=== PATIENT | male | born 1950 | race Caucasian/White ===

== ENCOUNTER 2021-03-11 08:24 | Inpatient (IN) ==
[2021-03-11] MEDS ORDERED: Ondansetron 4 MG/2 ML VIAL IVP PRN ×2 (10:04→15:59)
[2021-03-11] MEDS ORDERED: Acetaminophen 325 MG TABLET PO PRN ×2 (10:04→15:59)
[2021-03-11] MEDS ORDERED: *HR* HYDROmorphone (PF) 1 MG/ML SYRINGE IVP PRN (10:07)
[2021-03-11] MEDS ORDERED: *HR* OxyCODONE Immed Rel 5 MG TABLET PO PRN (10:07)
[2021-03-11] MEDS ORDERED: 0.9 % Sodium Chloride 1,000 ML IVC SCH ×2 (10:15→15:59)
[2021-03-11] MEDS ORDERED: *HR* Dextrose 50 % in Water (Syg) 50 ML SYRINGE IVP PRN ×2 (10:18→15:59)
[2021-03-11] MEDS ORDERED: D5% in Water 1,000 ML IVC PRN ×2 (10:18→15:59)
[2021-03-11] MEDS ORDERED: Dextrose Gel 15 GM/37.5 ML TUBE PO PRN ×4 (10:18→15:59)
[2021-03-11] MEDS ORDERED: MethylPREDNISolone 40 MG/ML VIAL IVP SCH (10:55)
[2021-03-11] MEDS ORDERED: Furosemide 40 MG/4 ML VIAL IVP SCH ×2 (11:00→21:00)
[2021-03-11] MEDS ORDERED: *HR* Heparin 5,000 UNIT/ML VIAL IVP PRN ×2 (11:24)
[2021-03-11] MEDS: Ipratropium/Albuterol Neb 3 ML IH SCH ×5 (11:27→23:54)
[2021-03-11] MEDS ORDERED: Heparin 25,000UNIT/250ML 1/2NS 25,000 UNIT/250 ML IV.SOLN IVC SCH ×2 (11:30→11:31)
[2021-03-11] MEDS ORDERED: Insulin LISPRO 300 UNITS/3 ML VIAL SUBQ SCH ×2 (12:00→18:00)
[2021-03-11] MEDS ORDERED: [UNRECOGNIZED DRUG - OTHER] IVPB ONE ×2 (12:04→15:59)
[2021-03-11] MEDS ORDERED: WATER FOR INJ IVPB ONE ×2 (12:04→15:59)
[2021-03-11] MEDS ORDERED: HUM PROTHROMBIN CPLX IVPB ONE ×2 (12:04→15:59)
[2021-03-11 12:15] LABS: Hematocrit 32.5 % (37.5-50.1); Hemoglobin 9.5 g/dL (12.9-16.9); Mean Corpuscular HGB Conc 29.2 g/dL (31.6-35.5); Mean Corpuscular Hemoglobin 25.9 pg (28.0-33.3); Mean Corpuscular Volume 88.6 fL (83.0-100.0); Mean Platelet Volume 11.4 fL (9.4-12.4); Platelet Count 211 K/mcL (140-400); Red Blood Count 3.67 M/mcL (4.19-5.50); Red Cell Distribution Width 18.3 % (11.5-14.5); White Blood Count 13.3 K/mcL (4.3-11.1)
[2021-03-11 12:22] LABS: INR 1.7; Prothrombin Time 18.4 Seconds (9.4-12.1)
[2021-03-11 12:25] LABS: Heparin anti-factor XA UFH 1.93 IU/mL (0.30-0.70)
[2021-03-11] MEDS ORDERED: *HR* FentaNYL (PF) 100 MCG/2 ML VIAL ONE (12:27)
[2021-03-11] MEDS ORDERED: *HR* Rocuronium Bromide 50 MG/5 ML VIAL ONE (12:27)
[2021-03-11] MEDS ORDERED: *HR* Propofol 200 MG/20 ML VIAL IVP ONE (12:27)
[2021-03-11] MEDS ORDERED: Lidocaine -MPF 2% 5 ML VIAL ONE (12:27)
[2021-03-11] MEDS ORDERED: Heparin 1,000 UNITS/500 mL 500 ML ONE (12:36)
[2021-03-11] MEDS ORDERED: cefOXitin 2,000 MG in Water for inj. (sterile) 20 ML IVP ONE (12:37)
[2021-03-11] MEDS ORDERED: *HR* Vasopressin 20 UNIT/ML VIAL ONE (12:38)
[2021-03-11] MEDS ORDERED: Albumin Human 5% 0 GM/0 ML IV.SOLN ONE (12:48)
[2021-03-11] MEDS ORDERED: CefOXitin 2,000 MG VIAL ONE (12:54)
[2021-03-11] MEDS ORDERED: EPHEDrine 50 MG/ML VIAL ONE (13:32)
[2021-03-11] MEDS ORDERED: *HR* Midazolam HCl 2 MG/2 ML VIAL ONE (13:42)
[2021-03-11] MEDS ORDERED: Acetaminophen IV 1,000 MG/100 ML BAG IVPB ONE (14:00)
[2021-03-11] MEDS ORDERED: Sugammadex Sodium 200 MG/2 ML VIAL IV ONE (14:31)
[2021-03-11] MEDS: MethylPREDNISolone 40 MG/ML VIAL IVP SCH (17:45)
[2021-03-11] MEDS: Insulin LISPRO 300 UNITS/3 ML VIAL SUBQ SCH (17:45)
[2021-03-12 03:20] LABS: Hematocrit 29.9 % (37.5-50.1); Hemoglobin 8.7 g/dL (12.9-16.9); Mean Corpuscular HGB Conc 29.1 g/dL (31.6-35.5); Mean Corpuscular Hemoglobin 25.4 pg (28.0-33.3); Mean Corpuscular Volume 87.4 fL (83.0-100.0); Mean Platelet Volume 11.3 fL (9.4-12.4); Platelet Count 182 K/mcL (140-400); Red Blood Count 3.42 M/mcL (4.19-5.50); Red Cell Distribution Width 18.5 % (11.5-14.5); White Blood Count 10.3 K/mcL (4.3-11.1)
[2021-03-12 03:41] LABS: BUN/Creatinine Ratio 27 (6-26); Blood Urea Nitrogen 34 mg/dL (8-23); Calcium 8.5 mg/dL (8.6-10.3); Carbon Dioxide 28 mEq/L (23-29); Chloride 101 mEq/L (98-107); Glucose 422 mg/dL (70-105); Osmolality,Calculated 314 (280-300); Potassium 4.2 mEq/L (3.5-5.1); Sodium 139 mEq/L (136-145); eGFR For African Americans > 60 (> 60); eGFR For Non-African Americans 58 (> 60)
[2021-03-12] MEDS: Ipratropium/Albuterol Neb 3 ML IH SCH ×6 (03:56→20:43)
[2021-03-12] MEDS: MethylPREDNISolone 40 MG/ML VIAL IVP SCH ×2 (05:45→17:50)
[2021-03-12] MEDS: *HR* HYDROmorphone (PF) 1 MG/ML SYRINGE IVP PRN ×4 (08:08→21:45)
[2021-03-12] MEDS: Insulin LISPRO 300 UNITS/3 ML VIAL SUBQ SCH ×3 (08:13→17:42)
[2021-03-12] MEDS: *HR* OxyCODONE Immed Rel 5 MG TABLET PO PRN ×2 (10:25→14:22)
[2021-03-12] MEDS: Furosemide 40 MG/4 ML VIAL IVP SCH (10:27)
[2021-03-12] MEDS ORDERED: *HR* Heparin 5,000 UNIT/ML VIAL IVP PRN ×2 (16:09)
[2021-03-12] MEDS ORDERED: Heparin 25,000 UNIT/250 ML 25,000 UNIT/250 ML IV.SOLN IVC SCH (16:15)
[2021-03-12] MEDS: Budesonide/Formoterol 80/4.5 1 PUFF INH IH SCH (20:43)
[2021-03-12] MEDS ORDERED: Insulin DETEMIR 100 UNIT/ML X5UNITS SUBQ SCH (21:00)
[2021-03-12] MEDS: *HR* Amiodarone 200 MG TABLET PO SCH (21:29)
[2021-03-12] MEDS: Insulin DETEMIR 100 UNIT/ML X5UNITS SUBQ SCH (21:30)
[2021-03-12] MEDS: Sacubitril/Valsartan 24/26 MG 1 TABLET PO SCH (21:30)
[2021-03-13] MEDS: Ipratropium/Albuterol Neb 3 ML IH SCH ×7 (00:05→23:02)
[2021-03-13 01:12] LABS: Basophils % 0.1 %; Hematocrit 28.5 % (37.5-50.1); Hemoglobin 8.6 g/dL (12.9-16.9); Immature Granulocytes % 0.5 % (0-4); Lymphocytes # 0.3 K/mcL (0.6-4.6); Lymphocytes % 2.1 %; Mean Corpuscular HGB Conc 30.2 g/dL (31.6-35.5); Mean Corpuscular Hemoglobin 26.5 pg (28.0-33.3); Mean Corpuscular Volume 87.7 fL (83.0-100.0); Mean Platelet Volume 11.4 fL (9.4-12.4); Monocytes # 0.4 K/mcL (0.0-1.3); Monocytes % 2.8 %; Neutrophils # 12.3 K/mcL (1.6-8.9); Platelet Count 201 K/mcL (140-400); Red Blood Count 3.25 M/mcL (4.19-5.50); Red Cell Distribution Width 18.5 % (11.5-14.5); Segmented Neutrophils % 94.5 %; White Blood Count 13.1 K/mcL (4.3-11.1)
[2021-03-13 01:30] LABS: Calcium 8.9 mg/dL (8.6-10.3); Potassium 4.3 mEq/L (3.5-5.1)
[2021-03-13] MEDS: Heparin 25,000 UNIT/250 ML 25,000 UNIT/250 ML IV.SOLN IVC SCH ×2 (02:29→16:12)
[2021-03-13] MEDS: MethylPREDNISolone 40 MG/ML VIAL IVP SCH (05:57)
[2021-03-13] MEDS: Budesonide/Formoterol 80/4.5 1 PUFF INH IH SCH ×2 (07:24→20:28)
[2021-03-13] MEDS: Metoprolol XL (24 HR) Succ 25 MG TAB.ER.24H PO SCH (07:44)
[2021-03-13] MEDS: *HR* OxyCODONE Immed Rel 5 MG TABLET PO PRN ×2 (07:44→21:28)
[2021-03-13] MEDS: Aspirin Enteric Coated 81 MG Tablet PO SCH (07:44)
[2021-03-13] MEDS: Furosemide 40 MG/4 ML VIAL IVP SCH (07:44)
[2021-03-13] MEDS: Insulin LISPRO 300 UNITS/3 ML VIAL SUBQ SCH ×3 (07:47→16:14)
[2021-03-13] MEDS: Insulin DETEMIR 100 UNIT/ML X5UNITS SUBQ SCH ×2 (07:47→21:29)
[2021-03-13] MEDS ORDERED: Sacubitril/Valsartan 24/26 MG 1 TABLET PO ONE (11:30)
[2021-03-13] MEDS ORDERED: Sacubitril/Valsartan 24/26 MG 1 TABLET PO SCH (12:00)
[2021-03-13] MEDS: Sacubitril/Valsartan 24/26 MG 1 TABLET PO SCH ×2 (12:12→21:29)
[2021-03-13] MEDS ORDERED: Sennosides 8.6 MG TABLET PO ONE (13:13)
[2021-03-13 15:30] LABS: Adenovirus Not Detected (Not Detect); Bordetella Pertussis Not Detected (Not Detect); Chlamydophila pneumoniae Not Detected (Not Detect); Coronavirus 229E Not Detected (Not Detect); Coronavirus HKU1 Not Detected (Not Detect); Coronavirus NL63 Not Detected (Not Detect); Coronavirus OC43 Not Detected (Not Detect); Human Metapneumovirus Not Detected (Not Detect); Human Rhinovirus/Enterovirus Not Detected (Not Detect); Influenza A Subtype 2009 H1 Not Detected (Not Detect); Influenza B Not Detected (Not Detect); Mycoplasma pneumoniae Not Detected (Not Detect); Parainfluenza Virus 1 Not Detected (Not Detect); Parainfluenza Virus 2 Not Detected (Not Detect); Parainfluenza Virus 3 Not Detected (Not Detect); Parainfluenza Virus 4 Not Detected (Not Detect); Respiratory Syncytial Virus Not Detected (Not Detect); SARS-CoV-2 Not Detected (Not Detect)
[2021-03-13] MEDS: Doxycycline 100 MG in 0.9 % Sodium Chloride Mini Bag 100 ML IVPB SCH (16:13)
[2021-03-13] MEDS: *HR* Amiodarone 200 MG TABLET PO SCH (21:28)
[2021-03-14] MEDS: *HR* OxyCODONE Immed Rel 5 MG TABLET PO PRN ×3 (02:50→20:15)
[2021-03-14] MEDS: Ipratropium/Albuterol Neb 3 ML IH SCH ×6 (03:35→23:50)
[2021-03-14 05:30] LABS: Basophils % 0.2 %; Eosinophils % 0.1 %; Hematocrit 28.6 % (37.5-50.1); Hemoglobin 8.4 g/dL (12.9-16.9); Immature Granulocytes % 0.6 % (0-4); Lymphocytes # 1.2 K/mcL (0.6-4.6); Lymphocytes % 9.3 %; Mean Corpuscular HGB Conc 29.4 g/dL (31.6-35.5); Mean Corpuscular Volume 88.5 fL (83.0-100.0); Mean Platelet Volume 11.6 fL (9.4-12.4); Monocytes # 1.1 K/mcL (0.0-1.3); Monocytes % 8.4 %; Neutrophils # 10.3 K/mcL (1.6-8.9); Platelet Count 199 K/mcL (140-400); Red Blood Count 3.23 M/mcL (4.19-5.50); Red Cell Distribution Width 18.8 % (11.5-14.5); Segmented Neutrophils % 81.4 %; White Blood Count 12.7 K/mcL (4.3-11.1)
[2021-03-14 05:47] LABS: Calcium 8.9 mg/dL (8.6-10.3); Potassium 4.1 mEq/L (3.5-5.1)
[2021-03-14] MEDS: Doxycycline 100 MG in 0.9 % Sodium Chloride Mini Bag 100 ML IVPB SCH ×2 (05:53→16:58)
[2021-03-14] MEDS: Metoprolol XL (24 HR) Succ 25 MG TAB.ER.24H PO SCH (08:42)
[2021-03-14] MEDS: Aspirin Enteric Coated 81 MG Tablet PO SCH (08:42)
[2021-03-14] MEDS: Insulin LISPRO 300 UNITS/3 ML VIAL SUBQ SCH ×3 (08:43→17:06)
[2021-03-14] MEDS: MethylPREDNISolone 40 MG/ML VIAL IVP SCH (08:43)
[2021-03-14] MEDS: Insulin DETEMIR 100 UNIT/ML X5UNITS SUBQ SCH ×2 (08:43→22:33)
[2021-03-14] MEDS: Budesonide/Formoterol 80/4.5 1 PUFF INH IH SCH ×2 (09:09→20:20)
[2021-03-14] MEDS: cefTRIAXone 1,000 MG in 0.9 % Sodium Chloride Mini Bag 100 ML IVPB SCH (13:06)
[2021-03-14] MEDS: Apixaban 5 MG TABLET PO SCH ×2 (13:06→20:15)
[2021-03-14] MEDS: Sacubitril/Valsartan 24/26 MG 1 TABLET PO SCH ×2 (13:06→22:32)
[2021-03-14] MEDS: *HR* Amiodarone 200 MG TABLET PO SCH (20:15)
[2021-03-15] MEDS ORDERED: Melatonin 3 MG TABLET PO PRN (01:48)
[2021-03-15 02:18] LABS: Basophils % 0.1 %; Hematocrit 29.6 % (37.5-50.1); Hemoglobin 8.8 g/dL (12.9-16.9); Immature Granulocytes % 0.6 % (0-4); Lymphocytes # 0.8 K/mcL (0.6-4.6); Lymphocytes % 7.4 %; Mean Corpuscular HGB Conc 29.7 g/dL (31.6-35.5); Mean Corpuscular Hemoglobin 26.2 pg (28.0-33.3); Mean Corpuscular Volume 88.1 fL (83.0-100.0); Mean Platelet Volume 11.6 fL (9.4-12.4); Monocytes # 0.9 K/mcL (0.0-1.3); Monocytes % 8.3 %; Neutrophils # 9.4 K/mcL (1.6-8.9); Platelet Count 219 K/mcL (140-400); Red Blood Count 3.36 M/mcL (4.19-5.50); Red Cell Distribution Width 18.6 % (11.5-14.5); Segmented Neutrophils % 83.6 %; White Blood Count 11.3 K/mcL (4.3-11.1)
[2021-03-15 02:40] LABS: BUN/Creatinine Ratio 36 (6-26); Blood Urea Nitrogen 47 mg/dL (8-23); Calcium 9.2 mg/dL (8.6-10.3); Carbon Dioxide 30 mEq/L (23-29); Chloride 103 mEq/L (98-107); Glucose 280 mg/dL (70-105); Osmolality,Calculated 312 (280-300); Potassium 4.3 mEq/L (3.5-5.1); Sodium 140 mEq/L (136-145); eGFR For African Americans > 60 (> 60); eGFR For Non-African Americans 55 (> 60)
[2021-03-15] MEDS: Ipratropium/Albuterol Neb 3 ML IH SCH ×3 (03:58→10:59)
[2021-03-15 06:56] VITALS: BP 116/62; PULSE 64; TEMP 97.4; O2SAT 98
[2021-03-15] MEDS: Budesonide/Formoterol 80/4.5 1 PUFF INH IH SCH (07:30)
[2021-03-15] MEDS: Apixaban 5 MG TABLET PO SCH (07:53)
[2021-03-15] MEDS: Metoprolol XL (24 HR) Succ 25 MG TAB.ER.24H PO SCH (07:53)
[2021-03-15] MEDS: Aspirin Enteric Coated 81 MG Tablet PO SCH (07:53)
[2021-03-15] MEDS: cefTRIAXone 1,000 MG in 0.9 % Sodium Chloride Mini Bag 100 ML IVPB SCH (07:54)
[2021-03-15] MEDS: MethylPREDNISolone 40 MG/ML VIAL IVP SCH (07:54)
[2021-03-15] MEDS: Insulin LISPRO 300 UNITS/3 ML VIAL SUBQ SCH (07:59)
[2021-03-15] MEDS: Insulin DETEMIR 100 UNIT/ML X5UNITS SUBQ SCH (08:24)
[2021-03-15] MEDS: Sacubitril/Valsartan 24/26 MG 1 TABLET PO SCH (10:14)
== END 2021-03-15 11:04 | disposition home health service (06) | DRG 350 ==
LOC: 2ANU → SUATTDRO 17:58
PROVIDERS: ADMIT Internal Medicine; ATTEND Internal Medicine

== ENCOUNTER 2021-04-03 11:34 | Observation (INO) ==
[2021-04-03] MEDS ORDERED: Pantoprazole 40 MG VIAL IVP ONE (13:44)
[2021-04-03 14:01] LABS: Basophils % 0.3 %; Eosinophils # 0.2 K/mcL (0.0-0.6); Eosinophils % 2.5 %; Hematocrit 31.3 % (37.5-50.1); Hemoglobin 9.1 g/dL (12.9-16.9); Immature Granulocytes % 0.3 % (0-4); Lymphocytes # 1.1 K/mcL (0.6-4.6); Lymphocytes % 12.3 %; Mean Corpuscular HGB Conc 29.1 g/dL (31.6-35.5); Mean Corpuscular Hemoglobin 25.6 pg (28.0-33.3); Mean Corpuscular Volume 88.2 fL (83.0-100.0); Mean Platelet Volume 11.2 fL (9.4-12.4); Monocytes # 0.7 K/mcL (0.0-1.3); Monocytes % 7.1 %; Neutrophils # 7.1 K/mcL (1.6-8.9); Platelet Count 232 K/mcL (140-400); Red Blood Count 3.55 M/mcL (4.19-5.50); Red Cell Distribution Width 16.7 % (11.5-14.5); Segmented Neutrophils % 77.5 %; White Blood Count 9.2 K/mcL (4.3-11.1)
[2021-04-03 14:12] LABS: INR 1.4; Prothrombin Time 15.6 Seconds (9.4-12.1)
[2021-04-03 14:15] LABS: Activated Partial Thrombo Time 36.3 Seconds (26.0-36.0)
[2021-04-03 14:29] LABS: Albumin 3.6 g/dL (3.5-5.7); Bilirubin,Direct 0.1 mg/dL (0.0-0.2); Bilirubin,Indirect 0.5 mg/dL (0.0-1.0); Bilirubin,Total 0.6 mg/dL (0.3-1.0); Calcium 9.4 mg/dL (8.6-10.3); Globulin 3.7 g/dL (2.4-3.5); Potassium 4.4 mEq/L (3.5-5.1); Total Protein 7.3 g/dL (6.4-8.9)
[2021-04-03] MEDS ORDERED: Ondansetron 4 MG/2 ML VIAL IVP PRN (17:31)
[2021-04-03] MEDS ORDERED: Naloxone 0.4 MG/ML INJ IVP PRN (17:31)
[2021-04-03] MEDS ORDERED: Dextrose Gel 15 GM/37.5 ML TUBE PO PRN ×2 (17:38)
[2021-04-03] MEDS ORDERED: D5% in Water 1,000 ML IVC PRN (17:38)
[2021-04-03] MEDS ORDERED: *HR* Dextrose 50 % in Water (Syg) 50 ML SYRINGE IVP PRN (17:38)
[2021-04-03] MEDS: Budesonide/Formoterol 80/4.5 1 PUFF INH IH SCH (20:46)
[2021-04-03] MEDS ORDERED: *HR* Amiodarone 200 MG TABLET PO SCH (21:00)
[2021-04-03] MEDS ORDERED: BACILLUS COAGULANS PO SCH (21:00)
[2021-04-03] MEDS ORDERED: Acetaminophen IV 1,000 MG/100 ML BAG IVPB ONE (23:23)
[2021-04-04] MEDS ORDERED: Pantoprazole 40 MG VIAL IVP SCH (03:00)
[2021-04-04 05:44] LABS: Basophils % 0.4 %; Eosinophils # 0.3 K/mcL (0.0-0.6); Eosinophils % 3.5 %; Hemoglobin 7.9 g/dL (12.9-16.9); Immature Granulocytes % 0.4 % (0-4); Lymphocytes # 1.2 K/mcL (0.6-4.6); Lymphocytes % 16.6 %; Mean Corpuscular HGB Conc 30.4 g/dL (31.6-35.5); Mean Corpuscular Hemoglobin 26.6 pg (28.0-33.3); Mean Corpuscular Volume 87.5 fL (83.0-100.0); Mean Platelet Volume 11.8 fL (9.4-12.4); Monocytes # 0.6 K/mcL (0.0-1.3); Monocytes % 8.6 %; Platelet Count 220 K/mcL (140-400); Red Blood Count 2.97 M/mcL (4.19-5.50); Red Cell Distribution Width 16.7 % (11.5-14.5); Segmented Neutrophils % 70.5 %; White Blood Count 7.1 K/mcL (4.3-11.1)
[2021-04-04 05:55] LABS: Calcium 8.6 mg/dL (8.6-10.3); Potassium 4.2 mEq/L (3.5-5.1)
[2021-04-04 05:58] LABS: % Iron Saturation 19 % (20-55); Iron 44 mcg/dL (65-175); Transferrin 165 mg/dL (203-362)
[2021-04-04 06:15] LABS: Ferritin 187 ng/mL (20-250)
[2021-04-04] MEDS ORDERED: *HR* Propofol 200 MG/20 ML VIAL IVP ONE ×2 (07:38→08:15)
[2021-04-04] MEDS ORDERED: Tiotropium 10 INH DOSE IH SCH (09:00)
[2021-04-04] MEDS ORDERED: Metoprolol XL (24 HR) Succ 25 MG TAB.ER.24H PO SCH (09:00)
[2021-04-04] MEDS ORDERED: Aspirin Enteric Coated 81 MG Tablet PO SCH (09:00)
[2021-04-04] MEDS: Budesonide/Formoterol 80/4.5 1 PUFF INH IH SCH (09:17)
[2021-04-04 11:00] VITALS: BP 156/70; PULSE 75; TEMP 97.8; O2SAT 95
== END 2021-04-04 13:40 | disposition home or self-care (01) ==
LOC: EMEROOARM 11:34 → 3ANU 11:34 → SUATTDRO 16:10 → 3ANU 17:12
PROVIDERS: ADMIT Internal Medicine; ATTEND Student in an Organized Health Care Education/Training Program